=== PATIENT | female | born 1940 | race Caucasian/White ===

== ENCOUNTER 2016-08-31 11:15 | Day surgery (SDC) | payer MEDICARE ==
[~2016-08-31] VITALS: Ht 162.6 cm; Wt 70.0 kg
[~2016-08-31 11:15] MED LIST: 0.9% Sodium Chloride 1,000 ML IV SCH; ASPI81TA40 PO; CAND4TAB PO; LEVO50TA39 PO; PRE3 PO; Sodium Chloride LOK Flush 10 mL Syringe IV PRN; TRAM50TA2 PO; TRIA1CAP PO; TRIA1TAB2 PO; fentaNYL-PF 50 mCg/mL 2 mL Inj IVPUSH PRN
[2016-08-31 11:49] VITALS: BP 121/61; PULSE 60; RESP 16; O2SAT 100
--- NOTE | 2016-08-31 12:45 | PCM.ENDEGD ---
EGD Date of Service: Aug 31, 2016 Physician Kevin Payton MD Pre Procedure Diagnosis: abd pain Post Procedure Dx & Findings: gastric ulcer, gastritis, duodenal erosion Procedure Esophagogastroduodenoscopy PROCEDURE IN DETAIL: After proper sedation, Olympus video endoscope was inserted into patient's mouth and esophagus was successfully intubated. Scope introduced esophagus. Esophagus showed normal shiny whitish mucosa consistent with squamous cell component. Z line was intact at 40 cm from the incisors. Scope further advanced to the stomach. Stomach showed atrophy with blunted rugae folds consistent with atrophic gastropathy. Patient also had antral ulcers about 3-4 mm in size. Biopsies of the ulcer as well as the atrophic gastropathy was taken and placed in the same bottle. Cardia fundus body antrum pylorus were all visualized. Retroflexion was done. Stomach was easily inflated and deflatable using air. Scope further events to the distal duodenum. The duodenal bulb showed one healing erosion which was biopsied. Impression Gastritis gastric ulcer. Duodenal erosion Recommendation Await biopsy Prilosec 20 once a day Presedation Assessment Risks and Benefits Informed consent was obtained from the patient after all risks and benefits including but not limited to drug reaction, infection, pain, bleeding, perforation, as well as alternatives were discussed. Patient monitoring Continuous pulse oximetry, cardiac monitoring, blood pressure monitoring, IV access, and oxygen at 2L per nasal cannula. Periprocedural Fentanyl: Fentanyl 125mcg Incrementally Midazolam: Midazolam 6mg Incrementally Complications There were no periprocedural complications identified. Post Procedure Plan Post Procedure Recommendations 1. Restrict activities today. 2. Resume normal activities in the morning. 3. Resume medications. 4. GERD behavioral modification: - Avoid fatty, acidic, spicy, large meals - Do not lie down after meals - Do not eat or drink anything for at least 2 1/2 hours before going to bed at night - Discontinue tobacco and alcohol - Decrease or avoid caffeine - Avoid chocolate and mints - Decrease weight - Avoid aspirin and non steroidal anti-inflammatory agents (NSAID) such as Aleve, Advil, Mobic, Naproxen, Ibuprofen, etc 5. Add proton pump inhibitor. Take 30 minutes before 1st meal of the day. 6. Patient informed of normal post procedure side effects as bloating, drowsiness, blood streaking in the stool 7. If gastric biopsy reveal H.pylori, continue with appropriate treatment 8. If small bowel biopsy reveals celiac, continue with appropriate treatment 9. Please don't hesitate to call me with any questions Kevin Payton MD Aug 31, 2016 12:45
--- NOTE | 2016-08-31 12:47 | PCM.ENDCOL ---
Colonoscopy Date of Service: Aug 31, 2016 Physician Kevin Payton MD Pre Procedure Diagnosis: Screening FIT positive Post Procedure Dx & Findings: Polyp hemorrhoids diverticulosis Procedure Colonoscopy PROCEDURE IN DETAIL: Prep adequate Withdrawal time 11 minutes After unremarkable rectal examination the Olympus video colonoscope was inserted patient's anal canal and was advanced to cecum. Landmarks were identified including the ileocecal valve and appendiceal orifice. Scope was withdrawn systematically. Visualized colonic mucosa showed healthy shiny mucosa with normal healthy-appearing vasculature. In the sigmoid colon, there was a 1 mm polyp which was removed completely using cold forceps. Also in the sigmoid colon there are few small to medium diverticuli. In the rectum retroflexion was done which showed hemorrhoids. Anal canal was inspected carefully on the way out and hemorrhoids noted. Impression Polyp 1 status post complete removal Diverticuli Hemorrhoids Recommendation Repeat colonoscopy 5 years Diverticuliar diet Presedation Assessment Risks and Benefits Informed consent was obtained from the patient after all risks and benefits including but not limited to drug reaction, infection, pain, bleeding, perforation, as well as alternatives were discussed. Patient monitoring Continuous pulse oximetry, cardiac monitoring, blood pressure monitoring, IV access, and oxygen at 2L per nasal cannula. Complications There were no periprocedural complications identified. Post Procedure Plan Post Procedure Recommendations 1. Restrict activities today. 2. Resume normal activities in the morning. 3. Resume medications. 4. Patient informed of normal post procedure side effects as bloating, drowsiness, blood streaking in the stool. 5. average risk CRCS. If colon polyps come back as: -Hyperplastic- can repeat colonoscopy in 10 years -Tubular adenoma- repeat colonoscopy in 5 years -Tubulovillous/villous adenoma- repeat colonoscopy in 3 years -If any dysplasia- return to clinic as soon as possible 6. Please don't hesitate to call me with any questions. Kevin Payton MD Aug 31, 2016 12:46
[2016-08-31 12:51] VITALS: BP 112/60; PULSE 77; RESP 16; O2SAT 96
[2016-08-31 13:04] VITALS: BP 111/59; PULSE 76; RESP 16; O2SAT 99
[2016-08-31 13:08] VITALS: BP 156/70; PULSE 76; RESP 16; O2SAT 96
--- NOTE | 2016-09-03 09:34 | PATH ---
SURGICAL PATHOLOGY Attending Physician:Kevin Payton M.D. CASE STATUS: Signed Out PATIENT NAME: RADHA ALFONSO PID: [id number] : 1940 DATE COLLECTED:08/31/2016 23:05 SPECIMEN: 1: Duodenum, Biopsy 2: Gastric, Biopsy 3: Colon, Polyp CLINICAL HISTORY: ABDOMINAL PAIN GASTRIC ULCER COLON POLYP 1). DUODENUM BIOPSIES 2). GASTRIC ULCER BIOPSIES - R/O H.PYLORI 3). SIGMOID POLYP FINAL DIAGNOSIS: 1. Duodenum Biopsies: Duodenal mucosa with no diagnostic abnormality. Negative for active inflammation, features of sprue, dysplasia and malignancy. 2. Stomach, Ulcer, Biopsies: Antral and body-type mucosa with no significant diagnostic abnormality. Negative for Helicobacter organisms. Negative for intestinal metaplasia. Negative for dysplasia and malignancy. 3. Sigmoid Colon, Polyp, Biopsy: Rectal mucosa with features suggestive of mucosal prolapse. Intraepithelial lymphocytes appear increased. See comment. Negative for dysplasia and malignancy. ICD10: R10.9 NOTE: Part 2: No active inflammation, erosion, or reactive gastropathy is identified in the examined sections designated as "gastric ulcer". Endoscopic correlation is recommended. Part 3: The sigmoid colon polyp shows increased intraepithelial lymphocytes which is not a typical feature of hyperplastic polyps. This raises the consideration of lymphocytic colitis. However, clinical correlation is recommended. GROSS DESCRIPTION: Received three formalin-filled containers, each labeled with the patient's name. 1. In a container labeled "duodenum", specimen consists of a 0.2 x 0.2 x 0.1 cm portion of tissue which is entirely submitted in cassette 1A. 2. In a container labeled "gastric ulcer" are three 0.2-0.3 cm portions of tissue entirely submitted in cassette 2A. 3. In a container labeled "sigmoid polyp" specimen consists of a 0.2 x 0.2 x 0.2 cm portion of tissue which is entirely submitted in cassette 3A. ([facility]:[id number]) ICD-9 CODES: CPT CODES: 1: 30586 2: 51568 3: 92143 Electronically Signed Out Jennifer Lazar MD [facility], [place] [address] Technical component performed at [facility], [facility] [address], [place], [address]
== END 2016-08-31 23:59 | disposition home or self-care (01) ==
LOC: END 11:15
PROVIDERS: ATTEND Internal Medicine
DX: K63.5 Polyp of colon (principal); K64.9 Unspecified hemorrhoids; K25.9 Gastric ulcer, unspecified as acute or chronic, without hemorrhage or perforation; K26.9 Duodenal ulcer, unspecified as acute or chronic, without hemorrhage or perforation; K57.30 Diverticulosis of large intestine without perforation or abscess without bleeding; R19.4 Change in bowel habit; R10.13 Epigastric pain; R19.5 Other fecal abnormalities; I10 Essential (primary) hypertension; E03.9 Hypothyroidism, unspecified; Z79.82 Long term (current) use of aspirin; Z79.890 Hormone replacement therapy
CPT/HCPCS: 43239; 45380; 88305; 99153; G0500; J2250; J3010; J7030